=== PATIENT | male | born 1965 | race Caucasian/White ===

== ENCOUNTER 2019-03-27 17:27 | Emergency (ER) | payer SELFPAY ==
[2019-03-27] MEDS ORDERED: Sodium Chloride 0.9% 1,000 ML ONE ×3 (17:54→19:35)
[2019-03-27 18:21] LABS: #Basophils 0.1 thou/uL (0.0-0.2); #Eosinphils 0.2 thou/uL (0.0-0.7); #Lymphocytes 1.3 thou/uL (1.20-3.40); #Monocytes 0.5 thou/uL (0.11-0.59); %Basophils 0.9 % (0.0-1.0); %Monocytes 5.7 % (0.0-10.0); %Neutrophils 75.4 % (42.0-75.0); Hemoglobin 11.4 g/dL (14.0-18.0); Mean Corpuscular HGB CONC 32.3 g/dL (32.0-36.0); Mean Corpuscular Volume 92.9 fL (78.0-98.0); Mean Platelet Volume 8.7 fL (7.4-10.4); Platelet Count 179 thou/uL (130-400); RBC Distribution Width 12.5 % (11.5-14.5)
[2019-03-27 18:26] LABS: ALT (SGPT) 15 U/L (8-55); AST (SGOT) 14 U/L (5-34); Albumin 3.8 g/dL (3.5-5.0); Alkaline Phosphatase 103 U/L (40-150); Anion Gap 17 mmol/L (10-20); BUN (Urea Nitrogen) 21 mg/dL (8.4-25.7); Bilirubin, Total 0.5 mg/dL (0.2-1.2); Calc. Creatinine Clearance 0 mL/min (70-130); Calcium 9.5 mg/dL (7.8-10.44); Carbon Dioxide 22 mmol/L (22-29); Chloride 84 mmol/L (98-107); Estimated GFR-MDRD 37; Globulin 3.2 g/dL (2.4-3.5); Magnesium 1.7 mg/dL (1.6-2.6); Potassium 5.6 mmol/L (3.5-5.1)
[2019-03-27 18:29] LABS: Base Excess-Venous -3.4 mmol/L (-2.0 to 3.0); CO2 Tension (PvCO2) 39.7 mmHg (40.0-50.0); Calcium, Ionized 1.22 mmol/L (See Comments:); Chloride 82 mmol/L (98-107); Potassium 5.7 mmol/L (3.5-5.1); Sodium 116 mmol/L (138-145); T. Carbon Dioxide 23.2 mmol/L (22.0-28.0); vO2 Saturation-calc 72.4 % (60.0-85.0)
[2019-03-27 18:57] LABS: Glucose 1162 mg/dL (70-105); Sodium 117 mmol/L (136-145)
[2019-03-27] MEDS ORDERED: Morphine 4 MG/ML VIAL ONE (19:35)
[2019-03-27] MEDS ORDERED: Insulin Regular 300 UNITS/3 ML VIAL ONE (19:35)
[2019-03-27 19:36] LABS: Bilirubin Negative (Negative); Blood, Urine Negative (Negative); Clarity Clear (Clear); Glucose, Urine (Dipstick) >=1000 mg/dL (Negative); Leukocyte Negative (Negative); Nitrite Negative (Negative); Protein, Urine (Dipstick) Negative (Neg-Trace); Urobilinogen 0.2 mg/dL (Less than 2)
[2019-03-27] MEDS ORDERED: Sodium Chloride 0.9% 100 ML ONE (19:36)
[2019-03-27] MEDS ORDERED: Calcium Chloride 1 GM/10 ML Abboject SYRINGE ONE (20:05)
== END 2019-03-27 20:22 | disposition short-term general hospital (02) ==
LOC: MADERS 17:27
DX: E11.00 Type 2 diabetes mellitus with hyperosmolarity without nonketotic hyperglycemic-hyperosmolar coma (NKHHC) (principal); K21.9 Gastro-esophageal reflux disease without esophagitis; F31.9 Bipolar disorder, unspecified; F41.9 Anxiety disorder, unspecified; F43.10 Post-traumatic stress disorder, unspecified; Z79.899 Other long term (current) drug therapy
CPT/HCPCS: 36416; 80053; 81003; 82330; 82803; 83735; 84484; 85025; 93005; 96361; 96365; 96375; J1815; J2270; J3490; J7050